=== PATIENT | female | born 1980 | race American Indian/Alaskan Native ===

== ENCOUNTER 2017-04-01 11:04 | Emergency (ER) | payer OTHER ==
[2017-04-01 11:26] VITALS: BP 109/68; TEMP 99.4; O2SAT 100
[2017-04-01 11:39] VITALS: PULSE 80; RESP 20
[2017-04-01] MEDS ORDERED: Bacitracin 500 Units/gm Oint Foilpak UD TOP ONE (11:55)
--- NOTE | 2017-04-01 11:57 | C.PDOC ---
History Of Present Illness Nikunj Meyer is a 36 year old female, with no past medical history, who presents to the emergency department complaining of right knee, right shoulder pain, right trapezius pain s/p slip and fall on wet office lobby floor prior to arrival. Patient reports landing on right knee and right shoulder. She denies any head injury, no loc. Last tetanus shot unknown. No further medical complaints. PMD: None provided. Time Seen by Provider: 04/01/17 11:38 Chief Complaint (Nursing): Lower Extremity Problem/Injury History Per: Patient History/Exam Limitations: no limitations Onset/Duration Of Symptoms: Hrs (prior to arrival) Current Symptoms Are (Timing): Still Present Past Medical History Reviewed: Historical Data, Nursing Documentation, Vital Signs Vital Signs: Last Vital Signs Temp 99.4 F 04/01/17 11:32 Pulse 80 04/01/17 11:32 Resp 20 04/01/17 11:32 BP 109/68 04/01/17 11:32 Pulse Ox 100 04/03/17 09:32 - Medical History PMH: No Chronic Diseases Surgical History: No Surg Hx Family History: States: Unknown Family Hx - Social History Hx Tobacco Use: Yes (light smoker <10 cigarettes daily) Hx Alcohol Use: No Hx Substance Use: No - Immunization History Hx Tetanus Toxoid Vaccination: No Hx Influenza Vaccination: No Hx Pneumococcal Vaccination: No Review Of Systems Constitutional: Negative for: Other (head injury) Musculoskeletal: Positive for: Shoulder Pain (right), Leg Pain (right knee) Skin: Positive for: Other (abrasion r knee) Neurological: Negative for: Weakness, Numbness Physical Exam - Physical Exam Skin: Normal Color, Warm, Dry Head: Atraumatic Eye(s): bilateral: Normal Inspection Neck: Normal, Normal ROM, No Midline Cervical Tenderness, Supple Extremity: No Normal ROM (right knee decreased secondary to pain. right shoulder decreased ROM), Tenderness (Diffused tenderness to the right knee. Pain to the right paracervical, right trapezius and shoulder ), No Deformity, Swelling (mild swelling to right knee), Other (abrasion to the right knee.) Pulses: Right Radial: Normal, Right Dorsalis Pedis: Normal Neurological/Psych: Oriented x3, Normal Speech, Normal Cognition, Normal Motor, Normal Sensation ED Course And Treatment O2 Sat by Pulse Oximetry: 100 (RA) Pulse Ox Interpretation: Normal - Other Rad right shoulder X-Ray: Viewed By Me, Read By Radiologist Interpretation: No acute displaced fracture or dislocation evident. If symptoms persist or if there is continued clinical concern, x-ray follow-up in 7 -10 days should be considered. right knee X-Ray: Viewed By Me, Read By Radiologist Interpretation: no acute displaced fracture, dislocation, or significant joint effusion identified. If symptoms persist, or if there is continued clinical concern, x-ray follow-up in 7-10 days should be considered. Medical Decision Making Medical Decision Making: Initial Impression: Right shoulder, and right knee pain s/p fall Initial Plan: --Knee 3 views rt [RAD] --Adacel 0.5 ml IM --Bacitracin 1 ea TOP --Flexeril 10 mg PO --Lidoderm 1 ea TD --Shoulder right [RAD] --reevaluation 12:57 Knee X-Ray FINDINGS: BONES: No acute displaced fracture. JOINTS: No dislocation. JOINT EFFUSION: No significant joint effusion. OTHER FINDINGS: None. IMPRESSION: No acute displaced fracture, dislocation, or significant joint effusion identified. If symptoms persist, or if there is continued clinical concern, x-ray follow-up in 7-10 days should be considered. 12:53 Shoulder X-Ray FINDINGS: External artifact limits evaluation. BONES: No acute displaced fracture. The distal clavicle and underlying ribs appear intact. JOINTS: No acute dislocation. SOFT TISSUES: Soft tissues appear unremarkable. No evidence of radiopaque foreign body. IMPRESSION: No acute displaced fracture or dislocation evident. If symptoms persist or if there is continued clinical concern, x-ray follow-up in 7-10 days should be considered. pt feeling better after toradol, able to ambulate well, will d/c. Disposition Counseled Patient/Family Regarding: Studies Performed, Diagnosis, Need For Followup, Rx Given - Disposition Disposition: HOME/ ROUTINE Disposition Time: 13:45 Condition: IMPROVED Additional Instructions: Take muscle relaxants and ibuprofen as prescribed for next 2 days- then when back to work, take ibuprofen as prescribed but muscle relaxant only at bedtime. Follow up with your doctor in a few days. Return to ER for any worse symptoms. Take pain patch off after 12 hours. Prescriptions: Cyclobenzaprine [Cyclobenzaprine HCl] 10 mg PO Q8 #9 tab Ibuprofen [Motrin] 600 mg PO TID #30 tab Instructions: Knee Sprain (ED), Shoulder Sprain (ED) Forms: General Discharge Instructions, [facility] (J[place]ican), Work Excuse - Clinical Impression Clinical Impression: Fall from slipping on wet surface, Sprain of right shoulder, Right knee sprain - Scribe Statement Mp Ken All medical record entries made by the Scribe were at my direction and personally dictated by me. I have reviewed the chart and agree that the record accurately reflects my personal performance of the history, physical exam, medical decision making, and the department course for this patient. I have also personally directed, reviewed, and agree with the discharge instructions and disposition.
[2017-04-01] MEDS ORDERED: Tetanus/Diphtheria Toxoids 0.5 ml Syringe IM ONE (12:16)
[2017-04-01] MEDS ORDERED: Bacitracin 500 Units/gm Oint Foilpak UD ONE (12:30)
--- NOTE | 2017-04-01 12:54 | RAD ---
PROCEDURE: Radiographs of the Right Shoulder HISTORY: landed on shoulder slip and fall COMPARISON: None available. FINDINGS: External artifact limits evaluation. BONES: No acute displaced fracture. The distal clavicle and underlying ribs appear intact. JOINTS: No acute dislocation. SOFT TISSUES: Soft tissues appear unremarkable. No evidence of radiopaque foreign body. IMPRESSION: No acute displaced fracture or dislocation evident. If symptoms persist or if there is continued clinical concern, x-ray follow-up in 7-10 days should be considered.
[2017-04-01] MEDS ORDERED: Lidocaine 5% Patch TD STA (12:58)
--- NOTE | 2017-04-01 12:59 | RAD ---
PROCEDURE: Right Knee Radiographs. HISTORY: COMPARISON: None available. FINDINGS: BONES: No acute displaced fracture. JOINTS: No dislocation. JOINT EFFUSION: No significant joint effusion. OTHER FINDINGS: None. IMPRESSION: No acute displaced fracture, dislocation, or significant joint effusion identified. If symptoms persist, or if there is continued clinical concern, x-ray follow-up in 7-10 days should be considered.
[2017-04-01] MEDS ORDERED: Lidocaine 5% Patch TD ONE (13:51)
== END 2017-04-01 13:53 | disposition home or self-care (01) ==
LOC: C.ER 11:04
DX: S43.401A Unspecified sprain of right shoulder joint, initial encounter (principal); S83.91XA Sprain of unspecified site of right knee, initial encounter; S80.211A Abrasion, right knee, initial encounter; W18.30XA Fall on same level, unspecified, initial encounter